=== PATIENT | male | born 1970 | race Caucasian/White ===

== ENCOUNTER 2023-07-17 04:50 | Emergency (ER) | payer BC, OTHER ==
[2023-07-17 05:22] LABS: BASOPHILS ABSOLUTE AUTO 0.12 K/mm3 (0.01-0.08); BASOPHILS PERCENT AUTO 1.6 % (0.1-1.2); EOSINOPHILS ABSOLUTE AUTO 0.34 K/mm3 (0.04-0.54); EOSINOPHILS PERCENT AUTO 4.5 (0.8-7.0); HEMATOCRIT 48.6 % (40.1-51.0); HEMOGLOBIN 16.3 gm/dl (13.7-17.5); IMMATURE GRAN ABSOLUTE AUTO 0.05 K/mm3 (0.00-0.10); IMMATURE GRAN PERCENT AUTO 0.7 % (<=1.0); LYMPHOCYTES ABSOLUTE AUTO 2.31 K/mm3 (1.32-3.57); LYMPHOCYTES PERCENT AUTO 30.8 % (21.8-53.1); MEAN CORPUSCULAR HGB CONC 33.5 g/dl (32.2-35.5); MEAN CORPUSCULAR VOLUME 92.4 fl (79.0-92.2); MEAN PLATELET VOLUME 11.3 fl (9.4-12.3); MONOCYTES PERCENT AUTO 10.7 % (5.3-12.2); NEUTROPHILS ABSOLUTE AUTO 3.89 K/mm3 (1.78-5.38); NEUTROPHILS PERCENT AUTO 51.7 % (34.0-67.9); PLATELET COUNT,PLT 223 K/mm3 (163-337); RED BLOOD CELL COUNT 5.26 M/mm3 (4.63-6.08); WHITE BLOOD CELL COUNT,WBC 7.51 K/mm3 (4.23-9.07)
[2023-07-17 05:48] LABS: A/G RATIO 1.1 (1-2); ALBUMIN 3.8 g/dl (3.4-5.0); ANION GAP 12.8 (5-15); BILIRUBIN TOTAL 0.3 mg/dL (0.2-1.0); BUN/CREATININE RATIO 12.7 (14-18); CREATININE 1.1 mg/dL (0.7-1.3); EST CRCL DRUG DOSING (CG) 85.24 mL/min; POTASSIUM,K 3.8 mEq/L (3.5-5.1); PROTEIN TOTAL,TP 7.4 g/dl (6.4-8.2)
[2023-07-17 06:01] LABS: INR 0.93
[2023-07-17 06:03] LABS: PTT,PARTIAL THROMBOPLSTIN TIME 27.6 SECONDS (21.7-31.4)
[2023-07-17 06:08] LABS: D-DIMER QUANTITATIVE < 0.19 mg/L (0.19-0.50)
== END 2023-07-17 06:25 | disposition home or self-care (01) ==
LOC: JD.ED 04:50
DX: R07.89 Other chest pain (principal); F17.210 Nicotine dependence, cigarettes, uncomplicated; J45.909 Unspecified asthma, uncomplicated; I10 Essential (primary) hypertension; E66.9 Obesity, unspecified; Z79.899 Other long term (current) drug therapy; Z68.37 Body mass index [BMI] 37.0-37.9, adult
CPT/HCPCS: 36415; 71046; 71046-26; 80053; 83880; 84484; 85025; 85379; 85610; 85730; 93005; 93010; 99284; 99285